=== PATIENT | female | born 1970 | race Caucasian/White ===

== ENCOUNTER 2017-06-14 13:54 | Emergency (ER) | payer BC, OTHER ==
[2017-06-14 14:15] VITALS: TEMP 97.9; BMI 29.9
[2017-06-14] MEDS ORDERED: MECLIZINE HCL 25 MG TABLET (FP) PO ONE (14:47)
[2017-06-14] MEDS ORDERED: ONDANSETRON 4 MG/2 ML VIAL IVPUSH ONE (14:47)
[2017-06-14] MEDS ORDERED: SODIUM CHLORIDE 1,000 ML IV STA (14:47)
--- NOTE | 2017-06-14 14:58 | PDOC ---
History of Present Illness <Inge Bradford - Last Filed: 06/14/17 17:23> - History of Present Illness Initial Comments: 06/14/17 14:58 The patient is a 47 year old female who denies PMH who presents for evaluation of lightheadedness, nausea, and vomiting. The patient reports acute onset of dizziness/lightheadedness that she describes as the room spinning around herself at around 11am this morning. She reports subsequent nausea and multiple episodes of non-bilious, non-bloody vomiting. She states her symptoms are worse with head movement and notes that she did have a recent viral illness. She denies fevers, chills, SOB, chest pain, abdominal pain, or changes with urination or bowel movements. <Tim Gallardo - Last Filed: 06/14/17 17:35> - General Chief Complaint: Nausea/Vomiting Stated Complaint: Nausea/Vomiting Time Seen by Provider: 06/14/17 14:37 Past History <Inge Bradford - Last Filed: 06/14/17 17:23> - Past Medical History COPD: No Diabetes: (PRE-DIABETIC) - Surgical History Abdominal Surgery: (TUMMY TUCK) - Suicide/Smoking/Psychosocial Hx Smoking History: Current some day smoker Number of Cigarettes Smoked Daily: 1 Information on smoking cessation initiated: No Hx Alcohol Use: No Drug/Substance Use Hx: No <Tim Gallardo - Last Filed: 06/14/17 17:35> - Past Medical History Allergies/Adverse Reactions: Allergies Allergy/AdvReac Type Severity Reaction Status Date / Time No Known Allergies Allergy Verified 06/14/17 14:15 Home Medications: Ambulatory Orders Meclizine HCl [Antivert -] 25 mg PO TID PRN #21 tablet 06/14/17 Review of Systems - Review of Systems Comments:: 06/14/17 15:02 Constitutional: No fevers, chills, fatigue, malaise HEENT: No Rhinorrhea, nasal congestion, visual changes Cardiovascular: No chest pain, syncope, palpitations, lightheadedness Respiratory: No Cough, SOB, Hemoptysis, Gastrointestinal: Nausea, vomiting. No Abdominal pain, Constipation, Diarrhea, Melena Genitourinary: No Dysuria, Frequency, Urgency, Hesitancy, Hematuria, Flank pain Musculoskeletal: No Myalgia, arthralgia Skin: No rashes, bruising, pallor Neurologic: Dizziness. No Headache, Numbness, Weakness, or Tingling Psychiatric: No Hallucinations. No SI or HI <PaulinaTim - Last Filed: 06/14/17 17:35> *Physical Exam - Vital Signs Last Vital Signs Temp Pulse Resp BP Pulse Ox 97.9 F 72 16 143/83 72 L 06/14/17 14:00 06/14/17 14:00 06/14/17 14:00 06/14/17 14:00 06/14/17 14:00 <Inge Bradford - Last Filed: 06/14/17 17:23> - Vital Signs Last Vital Signs Temp Pulse Resp BP Pulse Ox 97.9 F 72 16 143/83 72 L 06/14/17 14:00 06/14/17 14:00 06/14/17 14:00 06/14/17 14:00 06/14/17 14:00 - Physical Exam Comments: 06/14/17 15:03 General Appearance: Nourished. No Apparent Distress HEENT: EOMI, TANISHA. Horizontal nystagmus noted on exam. No Pharyngeal Erythema, Tonsillar Exudate, Tonsillar Erythema Neck: No Cervical Lymphadenopathy Respiratory/Chest: Lungs Clear, Normal Breath Sounds. No Crackles, Rales, Rhonchi, Wheezing Cardiovascular: Regular Rhythm, Regular Rate. No JVD, Murmur, Gallops, Rubs Gastrointestinal/Abdominal: Normal Bowel Sounds, Soft. No Guarding, Rebound, Tenderness Musculoskeletal: No CVA Tenderness Extremity: Normal Capillary Refill Integumentary: Normal Color, Dry, Warm Neurologic: automatic chief II-XII NML intact, Fully Oriented, Alert, Normal Mood/Affect, Normal Response, Motor Strength 5/5. Normal Finger to Nose and Heel to Raman. Normal fast alternating hands. Unable to assess gait due to severe symptoms. <PaulinaReeceTim - Last Filed: 06/14/17 17:35> ED Treatment Course - LABORATORY CBC & Chemistry Diagram: 06/14/17 15:30 06/14/17 15:30 - ADDITIONAL ORDERS Additional order review: Laboratory Results 06/14/17 06/14/17 15:30 15:30 Sodium 140 Potassium 4.8 Chloride 107 Carbon Dioxide 27 Anion Gap 6 L BUN 18 Creatinine 0.7 Creat Clearance w eGFR > 60 Random Glucose 104 Calcium 9.1 Total Bilirubin 0.3 AST 20 ALT 36 Alkaline Phosphatase 91 Creatine Kinase 88 Troponin I < 0.02 Total Protein 7.5 Albumin 3.8 06/14/17 15:30 RBC 5.46 H MCV 81.3 MCHC 32.4 RDW 14.3 MPV 9.1 Neutrophils % 87.7 H Lymphocytes % 6.6 L Monocytes % 4.5 Eosinophils % 0.3 Basophils % 0.9 - Medications Given in the ED: ED Medications Discontinued Medications Generic Name Dose Route Start Last Admin Trade Name Freq PRN Reason Stop Dose Admin Sodium Chloride 1,000 mls @ 1,000 mls/hr 06/14/17 14:47 06/14/17 15:33 Normal Saline - IV 06/14/17 15:46 1,000 mls/hr ASDIR STA Administration Meclizine HCl 25 mg 06/14/17 14:47 06/14/17 15:37 Antivert - PO 06/14/17 14:48 25 mg ONCE ONE Administration Ondansetron HCl 4 mg 06/14/17 14:47 06/14/17 15:33 Zofran Injection IVPUSH 06/14/17 14:48 4 mg ONCE ONE Administration <Inge Bradford - Last Filed: 06/14/17 17:23> - LABORATORY CBC & Chemistry Diagram: 06/14/17 15:30 06/14/17 15:30 - RADIOLOGY Radiology Studies Ordered: Category Date Time Status HEAD CT WITHOUT CONTRAST [CT] Stat CT Scan 06/14/17 14:55 Ordered <Tim Gallardo - Last Filed: 06/14/17 17:35> Medical Decision Making - Medical Decision Making 06/14/17 15:05 The patient is a 47 year old female who denies PMH who presents for evaluation of lightheadedness, nausea, and vomiting. Differential includes but is not limited to: Peripheral vertigo, central vertigo, infectious, metabolic derangement. Given the patient's severity of symptoms with a positive stephane diaz pike, it is likely the patient's symptoms are due to a peripheral vertigo. We will obtain a head ct to evaluate for any intracranial pathology as well. We will obtain a cbc, cmp, troponin, ekg to evaluate for other etiologies. We will treat the patient with zofran, iv fluids, and meclzine. We will continue to monitor and reassess. 06/14/17 17:32 cbc, cmp, troponin, ekg are unremarkable. Head CT is negative for acute processes as read by our radiologist. The patient reports significant improvement in her symptoms and is able to ambulate without any difficulty. We are comfortable discharging the patient home at this time with PCP follow up. We discussed the results with the patient as well as the plan and the patient voiced understanding and is agreeable. We will discharge with meclizine for home symptom management. <Tim Gallardo - Last Filed: 06/14/17 17:35> *DC/Admit/Observation/Transfer <SuzetteInge - Last Filed: 06/14/17 17:23> - Discharge Dispostion Admit: No <Tim Gallardo - Last Filed: 06/14/17 17:35> Diagnosis at time of Disposition: Positional vertigo Qualifiers: Laterality: unspecified laterality Qualified Code(s): H81.10 - Benign paroxysmal vertigo, unspecified ear - Discharge Dispostion Disposition: HOME Condition at time of disposition: Improved - Prescriptions Prescriptions: Meclizine HCl [Antivert -] 25 mg PO TID PRN #21 tablet PRN Reason: Dizziness - Referrals Referrals: Neal Miller RES [Primary Care Provider] - - Patient Instructions Printed Discharge Instructions: DI for Vertigo Additional Instructions: Please return to the ER if you experience concerning or worsening symptoms including worsening vomiting or fevers. Your lab results and imaging results were negative here in the ER. Your symptoms are likely due to vertigo. We have sent a prescription to your pharmacy to help manage your symptoms at home. Please call to schedule a follow up appointment with your primary care provider to discuss your ER visit and further management of your symptoms within 1 week. - Post Discharge Activity
--- NOTE | 2017-06-14 15:03 | PDOC ---
Attending Attestation - Resident Resident Name: Reece Gallardoel - ED Attending Attestation I have performed the following: I have examined & evaluated the patient, The case was reviewed & discussed with the resident, I agree w/resident's findings & plan, Exceptions are as noted - HPI HPI: 06/14/17 15:00 47-year-old female with no past medical history here today complaining of vertigo. Patient states symptoms started approximately 11 AM she had sudden onset severe spinning sensation with associated nausea and vomiting. Symptoms are worse with head turning and any movement states that she did feel falling sensation. No fever or chills no head trauma no focal weakness or speech changes. Did recently have a viral cold has never had vertigo before - Physicial Exam PE: 06/14/17 15:01 Awake alert no acute distress. Lung exam was clear lungs bilaterally. Heart is regular no murmurs rubs or gallops. Abdomen is soft and nontender. Extremities are warm and well-perfused. Neurological exam: Alert oriented 3. Patient has horizontal nystagmus. Nose is normal. Alternating hand movements are normal. Patient has a positive Favian-Hallpike with any head movement. Unable to test gait due to severer symptoms at this time. Speech is clear. Cranial nerves II through XII are intact. Strength is 5 out of 5 throughout - Medical Decision Making 06/14/17 15:02 47-year-old with severe vertigo likely peripheral. Plan IV fluids and Zofran and meclizine. We'll obtain CT scan to rule out any other pathology. Relatively normal neuro exam including a normal cerebellar exam this point. Making stroke Unlikely 06/14/17 17:[address] negative. labs unremarkable. feeling much improved after meclizine. gait normal. will dc with meclizine. and nuerology followup
[2017-06-14] MEDS ORDERED: ONDANSETRON 4 MG/2 ML VIAL ONE (15:06)
[2017-06-14] MEDS ORDERED: MECLIZINE HCL 25 MG TABLET (FP) ONE (15:34)
[2017-06-14 15:55] LABS: ALBUMIN 3.8 g/dl (3.4-5.0); ANION GAP 6 (8-16); BILIRUBIN,TOTAL 0.3 mg/dL (0.2-1.0); CALCIUM 9.1 mg/dL (8.5-10.1); CO2 27 mmol/L (21-32); CREATININE 0.7 mg/dL (0.55-1.02); GLUCOSE,RANDOM 104 mg/dL (74-106); SGOT/AST 20 U/L (15-37); SGPT/ALT 36 U/L (12-78); TOT PROT 7.5 g/dl (6.4-8.2)
[2017-06-14 15:56] LABS: ALK PHOS 91 U/L (45-117); CPK 88 IU/L (26-192); TROPONIN I < 0.02 ng/ml (0.00-0.05)
[2017-06-14 15:57] LABS: BASOPHIL 0.9 % (0-2.0); EOSINOPHIL 0.3 % (0-4.5); MCH 26.4 pg (25.7-33.7); MCHC 32.4 g/dl (32.0-36.0); MEAN CELL VOLUME 81.3 fl (80-96); MEAN PLT VOLUME 9.1 fl (7.5-11.1); NEUTROPHILS 87.7 % (42.8-82.8); PLATELET COUNT 271 K/MM3 (134-434); RDW 14.3 % (11.6-15.6); WHITE BLOOD COUNT 12.6 K/mm3 (4.0-10.0)
[2017-06-14 17:45] VITALS: BP 137/72; PULSE 77
--- NOTE | 2017-06-17 11:42 | EKG ---
Test Reason : Blood Pressure : / mmHG Vent. Rate : 065 BPM Atrial Rate : 065 BPM P-R Int : 170 ms QRS Dur : 080 ms QT Int : 414 ms P-R-T Axes : 056 031 032 degrees QTc Int : 430 ms NORMAL SINUS RHYTHM NORMAL ECG NO PREVIOUS ECGS AVAILABLE Confirmed by BERTIN JOHNSON, BLANCO ([id number]) on 06/17/2017 11:41:37 AM Referred By: Confirmed By:BLANCO DENTON MD
== END 2017-06-14 17:44 | disposition home or self-care (01) ==
LOC: JER 13:54
PROC: 3E033GC Introduction of Other Therapeutic Substance into Peripheral Vein, Percutaneous Approach (ICD-10-PCS; principal; 2017-06-14)
PROC: 3E0337Z Introduction of Electrolytic and Water Balance Substance into Peripheral Vein, Percutaneous Approach (ICD-10-PCS; 2017-06-14)
DX: H81.10 Benign paroxysmal vertigo, unspecified ear (principal); F17.210 Nicotine dependence, cigarettes, uncomplicated; R73.03 Prediabetes
CPT/HCPCS: 36415; 70450-TC; 80053; 82550; 84484; 85025; 93005; 93010; 99284-25

== ENCOUNTER 2019-05-27 17:40 | Emergency (ER) | payer BC, OTHER ==
[2019-05-27] MEDS ORDERED: ONDANSETRON 4 MG/2 ML VIAL IVPUSH ONE (17:52)
[2019-05-27] MEDS ORDERED: SODIUM CHLORIDE 1,000 ML IV STA ×2 (17:52→19:33)
[2019-05-27] MEDS ORDERED: KETOROLAC TROMETHAMINE 30 MG/1 ML VIAL IVPUSH ONE (17:52)
--- NOTE | 2019-05-27 17:52 | PDOC ---
Rapid Medical Evaluation Time Seen by Provider: 05/27/19 17:50 Medical Evaluation: Allergies Allergy/AdvReac Type Severity Reaction Status Date / Time No Known Allergies Allergy Verified 06/14/17 14:15 05/27/19 17:50 Pt c/o: abd pain after eating at [employer] this afternoon, + vomiting, abd cramping Pt on brief exam: vss, gen abd tenderness Pt ordered for: lab, meds, urine,ivf Pt to proceed to the ED Discharge Disposition - Diagnosis Abdominal pain, Nausea & vomiting, Leukocytosis - Discharge Dispostion Disposition: HOME - Prescriptions Prescriptions: Ondansetron [Zofran Odt -] 4 mg SL TID #9 od.tablet - Referrals - Patient Instructions Printed Discharge Instructions: Combination of Diet and Exercise May be Most Effective Weight Loss Tool for, DI for Nonalcoholic Fatty Liver Disease Additional Instructions: Your symptoms may be due to food poisoning, but they also could be due to the diet medication you are on. Follow up with your primary care doctor within 3 days. Your care is not complete until you follow up. STOP taking the diet pills until you see your primary care doctor. You had a high white blood cell count - 18 --> 13. Follow up on this finding with your primary care doctor, have this lab value tested again within 7 days. Your Ultrasound showed fatty liver. Return to the Emergency Department for increasing pain, shortness of breath, vomiting, fever, vomiting blood, blood in stool or any other new, worsening or concerning symptoms. - Post Discharge Activity Work/School Note: Back to Work
[2019-05-27 17:54] VITALS: BMI 32.1
[2019-05-27] MEDS ORDERED: ONDANSETRON 4 MG/2 ML VIAL ONE (18:19)
[2019-05-27] MEDS ORDERED: KETOROLAC TROMETHAMINE 30 MG/1 ML VIAL ONE (18:19)
[2019-05-27 18:52] LABS: BASO % 0.6 % (0-2.0); EOS % 0.4 % (0-4.5); HEMATOCRIT 46.9 % (32.4-45.2); HEMOGLOBIN 14.9 GM/dL (10.7-15.3); LYMPH % 6.8 % (8-40); MCHC 31.8 g/dl (32.0-36.0); MEAN CELL VOLUME 81.6 fl (80-96); MEAN PLT VOLUME 9.1 fl (7.5-11.1); NEUT % 89.2 % (42.8-82.8); PLATELET COUNT 305 K/MM3 (134-434); RBC 5.75 M/mm3 (3.60-5.2); RDW 14.5 % (11.6-15.6); WHITE BLOOD COUNT 18.3 K/mm3 (4.0-10.0)
[2019-05-27 19:28] LABS: BILIRUBIN,TOTAL 0.5 mg/dL (0.2-1); BLOOD UREA NITROGEN 16.1 mg/dL (7-18); CALCIUM 9.4 mg/dL (8.5-10.1); CREATININE 0.8 mg/dL (0.55-1.3); MAGNESIUM 2.3 mg/dL (1.8-2.4); POTASSIUM 3.9 mmol/L (3.5-5.1); TOT PROT 7.9 g/dl (6.4-8.2)
--- NOTE | 2019-05-27 19:33 | PDOC ---
History of Present Illness - General Chief Complaint: Pain Stated Complaint: ABD PAIN Time Seen by Provider: 05/27/19 17:50 History Source: Patient Exam Limitations: No Limitations - History of Present Illness Initial Comments: 48 year old female with PMH fatty liver, gastritis presented to ED for nausea/ vomiting/epigastric pain 1 hour after ingesting a chicken meal at a restaurant. She reported that her mother thought the chicken was undercooked. She denied fever, diarrhea, lightheadedness, chest pain, shortness of breath, dysuria, cough. She reported that she started taking Contrave (naltrexone/buproprion) x1 week ago one pill a day, and today was the first day she was supposed to take two pills. Past History - Past Medical History Allergies/Adverse Reactions: Allergies Allergy/AdvReac Type Severity Reaction Status Date / Time No Known Allergies Allergy Verified 05/27/19 17:53 Home Medications: Ambulatory Orders Naltrexone HCl/Bupropion HCl [Contrave ER 8-90 mg Tablet] 1 each PO BID COPD: No Diabetes: (PRE-DIABETIC) Liver Disease: Yes (fatty liver) - Surgical History Abdominal Surgery: ([facility]) - Psycho Social/Smoking Cessation Hx Smoking History: Never smoked Number of Cigarettes Smoked Daily: 1 Information on smoking cessation initiated: No Hx Alcohol Use: No Drug/Substance Use Hx: No Review of Systems - Review of Systems Able to Perform ROS?: Yes Comments:: ROS General: admitted to generalized weakness. denied fever, chills. HEENT: denied sore throat, rhinorrhea, ear pain. Cardiovascular: denied chest pain, palpitations, syncope, diaphoresis. Respiratory: denied shortness of breath, cough, sputum production, hemoptysis. Gastrointestinal: admitted to abdominal pain, nausea, vomiting. denied diarrhea , constipation, blood in stool. Genitourinary: denied dysuria, increased urinary frequency, hematuria, urinary incontinence, flank pain. Back: denied back pain. Musculoskeletal: denied joint pain, muscle pain, joint swelling. Neurological: denied headache, dizziness, numbness, tingling, weakness. Integumentary: denied rash, laceration, abrasion. Hematologic/Lymphatic: denied bruising or bleeding. PE Constitutional: Well-nourished, Well-developed, appearing stated age. HEENT: head is normocephalic, atraumatic. EOMI. PERRLA. Neck: supple. Full ROM. Cardiovascular: regular heart rhythm. no murmurs. no pericardial friction rub. Respiratory: clear to auscultation bilaterally. no crackles, rhonchi or wheezing. no stridor. Gastrointestinal: soft, flat. tenderness to palpation of epigastrium. negative murphys. negative mcburneys. increased bowel sounds. no rebound, guarding, masses. Extremities: peripheral pulses intact. no lower extremity edema. Neurological: CN 2-12 grossly intact. moves all four extremities. Psych: awake, alert, oriented x3. follows commands. answers questions appropriately. *Physical Exam - Vital Signs Last Vital Signs Temp Pulse Resp BP Pulse Ox 97.9 F 110 H 19 90/64 99 05/27/19 17:51 05/27/19 17:51 05/27/19 17:51 05/27/19 17:51 05/27/19 17:51 ED Treatment Course - LABORATORY CBC & Chemistry Diagram: 05/27/19 23:05 05/27/19 18:30 - ADDITIONAL ORDERS Additional order review: Laboratory Results 05/27/19 18:30 Sodium 139 Potassium 3.9 Chloride 103 Carbon Dioxide 27 Anion Gap 9 BUN 16.1 Creatinine 0.8 Est GFR (CKD-EPI)AfAm 99.63 Est GFR (CKD-EPI)NonAf 85.96 Random Glucose 92 Calcium 9.4 Magnesium 2.3 Total Bilirubin 0.5 AST 19 ALT 27 Alkaline Phosphatase 114 Total Protein 7.9 Albumin 4.0 Lipase 53 L 05/27/19 18:30 RBC 5.75 H MCV 81.6 MCHC 31.8 L RDW 14.5 MPV 9.1 Neutrophils % 89.2 H Lymphocytes % 6.8 L Monocytes % 3.0 L Eosinophils % 0.4 Basophils % 0.6 - Medications Given in the ED: ED Medications Discontinued Medications Generic Name Dose Route Start Last Admin Trade Name Freq PRN Reason Stop Dose Admin Sodium Chloride 1,000 mls @ 1,000 mls/hr 05/27/19 17:52 05/27/19 18:29 Normal Saline - IV 05/27/19 18:51 1,000 mls/hr ASDIR STA Administration Ketorolac Tromethamine 30 mg 05/27/19 17:52 05/27/19 18:29 Toradol Injection - IVPUSH 05/27/19 17:53 30 mg ONCE ONE Administration Ondansetron HCl 4 mg 05/27/19 17:52 05/27/19 18:30 Zofran Injection IVPUSH 05/27/19 17:53 4 mg ONCE ONE Administration Medical Decision Making - Medical Decision Making 48 year old female with above PMH presented to ED for N/V epigastric pain acutely 1 hour after ingesting suspected undercooked chicken at a restaurant. Initial Vital Signs Temp Pulse Resp BP Pulse Ox 97.9 F 110 H 19 90/64 99 05/27/19 17:51 05/27/19 17:51 05/27/19 17:51 05/27/19 17:51 05/27/19 17:51 Afebrile. Tachycardic. Tachypneic. Hypotensive. No hypoxia on room air. Uptodate >10% Adverse Reactions of Contrave: -Central nervous system: Headache (18%), sleep disorder (14%) -Gastrointestinal: Nausea (33%), constipation (19%), vomiting (11%) -Cholecystitis (<2%) ED Medications Discontinued Medications Generic Name Dose Route Start Last Admin Trade Name Freq PRN Reason Stop Dose Admin Sodium Chloride 1,000 mls @ 1,000 mls/hr 05/27/19 17:52 05/27/19 18:29 Normal Saline - IV 05/27/19 18:51 1,000 mls/hr ASDIR STA Administration Ketorolac Tromethamine 30 mg 05/27/19 17:52 05/27/19 18:29 Toradol Injection - IVPUSH 05/27/19 17:53 30 mg ONCE ONE Administration Ondansetron HCl 4 mg 05/27/19 17:52 05/27/19 18:30 Zofran Injection IVPUSH 05/27/19 17:53 4 mg ONCE ONE Administration CBC WBC 18.3 K/mm3 (4.0-10.0) H 05/27/19 18:30 RBC 5.75 M/mm3 (3.60-5.2) H 05/27/19 18:30 Hgb 14.9 GM/dL (10.7-15.3) 05/27/19 18:30 Hct 46.9 % (32.4-45.2) H 05/27/19 18:30 MCV 81.6 fl (80-96) 05/27/19 18:30 MCH 26.0 pg (25.7-33.7) 05/27/19 18:30 MCHC 31.8 g/dl (32.0-36.0) L 05/27/19 18:30 RDW 14.5 % (11.6-15.6) 05/27/19 18:30 Plt Count 305 K/MM3 (134-434) 05/27/19 18: MPV 9.1 fl (7.5-11.1) 05/27/19 18:30 Absolute Neuts (auto) 16.4 K/mm3 (1.5-8.0) H 05/27/19 18:30 Neutrophils % 89.2 % (42.8-82.8) H 05/27/19 18:30 Lymphocytes % 6.8 % (8-40) L 05/27/19 18:30 Monocytes % 3.0 % (3.8-10.2) L 05/27/19 18: Eosinophils % 0.4 % (0-4.5) 05/27/19 18:30 Basophils % 0.6 % (0-2.0) 05/27/19 18:30 Nucleated RBC % 0 % (0-0) 05/27/19 18:30 Leukocytosis with left shift. No anemia. CMP Sodium 139 mmol/L (136-145) 05/27/19 18:30 Potassium 3.9 mmol/L (3.5-5.1) 05/27/19 18:30 Chloride 103 mmol/L (98-107) 05/27/19 18:30 Carbon Dioxide 27 mmol/L (21-32) 05/27/19 18:30 Anion Gap 9 MMOL/L (8-16) 05/27/19 18:30 BUN 16.1 mg/dL (7-18) 05/27/19 18:30 Creatinine 0.8 mg/dL (0.55-1.3) 05/27/19 18:30 Est GFR (CKD-EPI)AfAm 99.63 05/27/19 18:30 Est GFR (CKD-EPI)NonAf 85.96 05/27/19 18:30 Random Glucose 92 mg/dL (74-106) 05/27/19 18:30 Calcium 9.4 mg/dL (8.5-10.1) 05/27/19 18:30 Magnesium 2.3 mg/dL (1.8-2.4) 05/27/19 18:30 Total Bilirubin 0.5 mg/dL (0.2-1) 05/27/19 18:30 AST 19 U/L (15-37) 05/27/19 18:30 ALT 27 U/L (13-61) 05/27/19 18:30 Alkaline Phosphatase 114 U/L (45-117) 05/27/19 18:30 Total Protein 7.9 g/dl (6.4-8.2) 05/27/19 18:30 Albumin 4.0 g/dl (3.4-5.0) 05/27/19 18:30 Lipase 53 U/L (73-393) L 05/27/19 18:30 No electrolyte abnormalities. No RENETTA. No transaminitis. Lipase wnl. 05/27/19 21:50 RUQ US report: Name: [facility] DEPARTMENT OF RADIOLOGY Phys: Ami Lua RESIDENT : 1970 Age: 48 Sex: F [facility] Acct: [id number] Loc: [address] Exam Date: 05/27/19 Status: [facility] [place] [address] Unit Number: [id number] EXAM#: TYPE/EXAM: RESULT: [id number] US/ABDOMEN US -LIMITED HISTORY PROVIDED: Epigastric pain. Real time examination of the abdomen demonstrates the following : The gallbladder is normal in size and free of calculi with no evidence of intra or extrahepatic biliary duct dilatation. The liver is enlarged measuring 18 cm in craniocaudad dimension. It is hyperechoic in texture consistent with diffuse fatty infiltration. No discrete intrahepatic masses are identified. Hepatopedal flow is documented within the main portal vein. The pancreas is normal in size and texture with no pancreatic masses identified. There is no evidence of hydronephrosis or acute abnormalities of the right kidney. There is no evidence of AAA. The IVC is patent. IMPRESSION: Diffuse fatty infiltration of the liver. Reported By: Luc Brown MD 05/27/192118 CT report: Name: [facility] DEPARTMENT OF RADIOLOGY Phys: Pepe Knapp RESIDENT : 1970 Age: 48 Sex: F [facility] Acct: [id number] Loc: [facility] Exam Date: 05/27/19 Status: [facility] [place] [id number] Unit Number: [id number] EXAM#: TYPE/EXAM: RESULT: [id number] CT/ABDOMEN PELVIS CT WITH CONTR HISTORY PROVIDED: Diffuse abdominal pain. Sequential axial images were obtained from the domes of the diaphragms through the symphysis pubis following the administration of both oral and intravenous contrast material. The the liver is enlarged measuring 21.5 cm in craniocaudad dimension. It is hypodense in texture consistent with diffuse fatty infiltration. No mass lesions are identified within the liver. The spleen, pancreas, adrenal glands and kidneys demonstrate no significant abnormalities. The gallbladder is clear. There is no evidence of intra-abdominal or retroperitoneal lymphadenopathy or fluid collections. There is no evidence of pneumoperitoneum, bowel obstruction or intra-abdominal abscess. There is no CT evidence of acute appendicitis. There is extensive sigmoid diverticulosis with no evidence of acute diverticulitis. Examination of the pelvis demonstrates no evidence of pelvic masses, fluid collections or lymphadenopathy. The uterus is enlarged consistent with leiomyomata. There is a trace amount of free fluid within the cul-de-sac. There is no evidence of acute bony pathology. IMPRESSION: No evidence of acute pathology within the abdomen or pelvis. Please see above discussion. Reported By : Luc Brown MD 05/27/19222305/27/19 23:20 CBC WBC 13.8 K/mm3 (4.0-10.0) H 05/27/19 23:05 RBC 5.24 M/mm3 (3.60-5.2) H 05/27/19 23:05 Hgb 13.4 GM/dL (10.7-15.3) 05/27/19 23:05 Hct 43.1 % (32.4-45.2) 05/27/19 23:05 MCV 82.2 fl (80-96) 05/27/19 23:05 MCH 25.6 pg (25.7-33.7) L 05/27/19 23:05 MCHC 31.2 g/dl (32.0-36.0) L 05/27/19 23:05 RDW 14.4 % (11.6-15.6) 05/27/19 23:05 Plt Count 273 K/MM3 (134-434) 05/27/19 23:05 MPV 8.5 fl (7.5-11.1) 05/27/19 23:05 Absolute Neuts (auto) 16.4 K/mm3 (1.5-8.0) H 05/27/19 18:30 Neutrophils % 89.2 % (42.8-82.8) H 05/27/19 18:30 Lymphocytes % 6.8 % (8-40) L 05/27/19 18:30 Monocytes % 3.0 % (3.8-10.2) L 05/27/19 18:30 Eosinophils % 0.4 % (0-4.5) 05/27/19 18:30 Basophils % 0.6 % (0-2.0) 05/27/19 18:30 Nucleated RBC % 0 % (0-0) 05/27/19 18:30 Repeat WBC improving. 05/28/19 00:02 CMP Sodium 139 mmol/L (136-145) 05/27/19 18:30 Potassium 3.9 mmol/L (3.5-5.1) 05/27/19 18:30 Chloride 103 mmol/L (98-107) 05/27/19 18:30 Carbon Dioxide 27 mmol/L (21-32) 05/27/19 18:30 Anion Gap 9 MMOL/L (8-16) 05/27/19 18:30 BUN 16.1 mg/dL (7-18) 05/27/19 18:30 Creatinine 0.8 mg/dL (0.55-1.3) 05/27/19 18:30 Est GFR (CKD-EPI)AfAm 99.63 05/27/19 18:30 Est GFR (CKD-EPI)NonAf 85.96 05/27/19 18:30 Random Glucose 92 mg/dL (74-106) 05/27/19 18:30 Calcium 9.4 mg/dL (8.5-10.1) 05/27/19 18:30 Magnesium 2.3 mg/dL (1.8-2.4) 05/27/19 18:30 Total Bilirubin 0.5 mg/dL (0.2-1) 05/27/19 18:30 AST 19 U/L (15-37) 05/27/19 18:30 ALT 27 U/L (13-61) 05/27/19 18:30 Alkaline Phosphatase 114 U/L (45-117) 05/27/19 18:30 Total Protein 7.9 g/dl (6.4-8.2) 05/27/19 18:30 Albumin 4.0 g/dl (3.4-5.0) 05/27/19 18:30 Lipase 53 U/L (73-393) L 05/27/19 18:30 Beta HCG, Quant 2.8 mIU/ml 05/27/19 18:30 No electrolyte abnormalities. No RENETTA. No transmianitis. Lipase wnl. Urine Test Results Urine Color Yellow 05/27/19 23:00 Urine Appearance Cloudy 05/27/19 23:00 Urine pH 8.5 (5.0-8.0) H 05/27/19 23:00 Ur Specific [place] 1.062 (1.010-1.035) H 05/27/19 23:00 Urine Protein Negative (NEGATIVE) 05/27/19 23:00 Urine Glucose (UA) Negative (NEGATIVE) 05/27/19 23:00 Urine Ketones Trace (NEGATIVE) H 05/27/19 23:00 Urine Blood Negative (NEGATIVE) 05/27/19 23:00 Urine Nitrite Negative (NEGATIVE) 05/27/19 23:00 Urine Bilirubin Negative (NEGATIVE) 05/27/19 23:00 Ur Leukocyte Esterase Negative (NEGATIVE) 05/27/19 23:00 Negative for UTI. Trace ketones. Pt reported improvement of symptoms. Pt informed to stop diet pills. Pt informed to F/U with PCP. Pt expressed improvement of symptoms and agreement with plan for care. Pt discharged. Discharge - Discharge Information Problems reviewed: Yes Clinical Impression/Diagnosis: Abdominal pain, Nausea & vomiting, Leukocytosis - Admission No - Follow up/Referral - Patient Discharge Instructions Patient Printed Discharge Instructions: Combination of Diet and Exercise May be Most Effective Weight Loss Tool for, DI for Nonalcoholic Fatty Liver Disease Additional Instructions: Your symptoms may be due to food poisoning, but they also could be due to the diet medication you are on. Follow up with your primary care doctor within 3 days. Your care is not complete until you follow up. STOP taking the diet pills until you see your primary care doctor. You had a high white blood cell count - 18 --> 13. Follow up on this finding with your primary care doctor, have this lab value tested again within 7 days. Your Ultrasound showed fatty liver. Return to the Emergency Department for increasing pain, shortness of breath, vomiting, fever, vomiting blood, blood in stool or any other new, worsening or concerning symptoms. - Post Discharge Activity Work/Back to School Note: Back to Work
--- NOTE | 2019-05-27 19:54 | PDOC ---
Attending Attestation - Resident Resident Name: Ami Lua - ED Attending Attestation I have performed the following: I have examined & evaluated the patient, The case was reviewed & discussed with the resident, I agree w/resident's findings & plan - HPI HPI: 05/28/19 00:58 see resident hpi - Physicial Exam PE: 05/28/19 00:58 agree with resident exam - Medical Decision Making 05/28/19 00:59 48-year-old female with vomiting and abdominal pain after eating questionable food CT abdomen and pelvis as well as right upper quadrant ultrasound were within normal limits Patient's white blood cell count decreased significantly after IV fluids Chest x-ray shows no acute infiltrate Patient improved on reevaluation prior to discharge, she will be discharged home with outpatient primary care follow-up
[2019-05-27 23:19] LABS: HEMATOCRIT 43.1 % (32.4-45.2); HEMOGLOBIN 13.4 GM/dL (10.7-15.3); MCH 25.6 pg (25.7-33.7); MCHC 31.2 g/dl (32.0-36.0); MEAN CELL VOLUME 82.2 fl (80-96); MEAN PLT VOLUME 8.5 fl (7.5-11.1); PLATELET COUNT 273 K/MM3 (134-434); RBC 5.24 M/mm3 (3.60-5.2); RDW 14.4 % (11.6-15.6); WHITE BLOOD COUNT 13.8 K/mm3 (4.0-10.0)
[2019-05-27 23:46] LABS: URINE APPEARANCE CLOUDY; URINE COLOR YELLOW
[2019-05-27 23:47] LABS: PH,URINE 8.5 (5.0-8.0); URINE BILIRUBIN NEGATIVE (NEGATIVE); URINE GLUCOSE (UA) NEGATIVE (NEGATIVE); URINE KETONE TRACE (NEGATIVE); URINE LEUK ESTERASE NEGATIVE (NEGATIVE); URINE NITRITE NEGATIVE (NEGATIVE); URINE PROTEIN NEGATIVE (NEGATIVE); URINE UROBILINOGEN 0.2 mg/dL (0.2-1.0)
[2019-05-28 01:29] VITALS: BP 92/51; PULSE 67; TEMP 98
--- NOTE | 2019-05-28 12:06 | EKG ---
Test Reason : Blood Pressure : / mmHG Vent. Rate : 070 BPM Atrial Rate : 070 BPM P-R Int : 160 ms QRS Dur : 080 ms QT Int : 408 ms P-R-T Axes : 053 016 026 degrees QTc Int : 440 ms NORMAL SINUS RHYTHM NORMAL ECG WHEN COMPARED WITH ECG OF 14-JUN-2017 15:04, NO SIGNIFICANT CHANGE WAS FOUND Confirmed by GREG FORDE MD ([id number]) on 05/28/2019 12:06:02 PM Referred By: Confirmed By:GREG FORDE MD
== END 2019-05-28 01:27 | disposition home or self-care (01) ==
LOC: JER 17:40
PROC: 3E0333Z Introduction of Anti-inflammatory into Peripheral Vein, Percutaneous Approach (ICD-10-PCS; principal; 2019-05-27)
PROC: 3E033GC Introduction of Other Therapeutic Substance into Peripheral Vein, Percutaneous Approach (ICD-10-PCS; 2019-05-27)
PROC: 3E0337Z Introduction of Electrolytic and Water Balance Substance into Peripheral Vein, Percutaneous Approach (ICD-10-PCS; 2019-05-27)
DX: D72.829 Elevated white blood cell count, unspecified (principal); R10.9 Unspecified abdominal pain; R11.2 Nausea with vomiting, unspecified; K76.0 Fatty (change of) liver, not elsewhere classified; K52.9 Noninfective gastroenteritis and colitis, unspecified; R73.03 Prediabetes
CPT/HCPCS: 36415; 71046-TC-FY; 74177-TC; 76705-TC; 80053; 81003; 83690; 83735; 84702; 85025; 85027; 93005; 93010; 99284-25; J7030

== ENCOUNTER 2022-04-19 03:45 | Inpatient (IN) | payer BC, OTHER ==
[2022-04-19] MEDS ORDERED: morphine CARPU-JECT 2 MG/1 ML DISP.SYRIN IVPUSH ONE ×3 (06:00→08:57)
[2022-04-19 06:23] LABS: HEMOGLOBIN 14.7 GM/dL (10.7-15.3); MCH 26.6 pg (25.7-33.7); MCHC 32.8 g/dl (32.0-36.0); MEAN CELL VOLUME 81.1 fl (80-96); MEAN PLT VOLUME 8.2 fl (7.5-11.1); PLATELET COUNT 353 10^3/uL (134-434); RBC 5.54 M/mm3 (3.60-5.2); RDW 14.2 % (11.6-15.6); WHITE BLOOD COUNT 12.3 K/mm3 (4.0-10.0)
[2022-04-19 06:25] LABS: ACTIVATED PTT 37.3 SECONDS (25.2-36.5); INR 1.03 (0.83-1.09); PROTHROMBIN TIME (PATIENT) 11.9 SEC (9.7-13.0)
[2022-04-19 06:34] LABS: LACTIC ACID 3.8 mmol/L (0.4-2.0)
[2022-04-19] MEDS ORDERED: METOCLOPRAMIDE HCL INJECTION 10 MG/2 ML VIAL IVPUSH ONE (06:39)
[2022-04-19] MEDS ORDERED: METOCLOPRAMIDE HCL INJECTION 10 MG/2 ML VIAL ONE (06:52)
[2022-04-19 07:13] LABS: CHLORIDE 106 mmol/L (98-107); SODIUM 141 mmol/L (136-145)
[2022-04-19] MEDS ORDERED: LACTATED RINGERS SOLUTION 1000 ML INFUS.BAG IV ONE (07:13)
[2022-04-19 07:15] LABS: CALCIUM 10.3 mg/dL (8.5-10.1); LIPASE 61 U/L (73-393); MAGNESIUM 2.4 mg/dL (1.8-2.4)
[2022-04-19 07:16] LABS: ALBUMIN 4.3 g/dl (3.4-5.0); ANION GAP 15 MMOL/L (8-16); CO2 21 mmol/L (21-32); GLUCOSE,RANDOM 108 mg/dL (74-106)
[2022-04-19 07:18] LABS: SGOT/AST 20 U/L (15-37); SGPT/ALT 21 U/L (13-61)
[2022-04-19 07:19] LABS: TRIGLYCERIDES 111 mg/dL (0-150)
[2022-04-19 07:20] LABS: TOT PROT 8.1 g/dl (6.4-8.2)
[2022-04-19 07:21] LABS: BILIRUBIN,TOTAL 0.8 mg/dL (0.2-1)
[2022-04-19 07:22] LABS: ALK PHOS 95 U/L (45-117)
[2022-04-19] MEDS ORDERED: morphine CARPU-JECT 4 MG/1 ML DISP.SYRIN IVPUSH ONE (07:25)
[2022-04-19] MEDS ORDERED: SUCRALFATE 1 GM TABLET (FP) PO ONE (07:39)
[2022-04-19] MEDS ORDERED: FAMOTIDINE 20 MG/50 ML IVPB 20 MG/50 ML MG IVPB ONE ×2 (07:40→07:48)
[2022-04-19] MEDS ORDERED: TRIMETHOBENZAMIDE HCL 200MG/2ML INJ IM ONE ×2 (08:15→08:16)
[2022-04-19 08:49] LABS: PH,URINE 8.5 (5.0-8.0); URINE APPEARANCE CLEAR; URINE BILIRUBIN NEGATIVE (NEGATIVE); URINE COLOR YELLOW; URINE GLUCOSE (UA) NEGATIVE (NEGATIVE); URINE KETONE 2+ (NEGATIVE); URINE LEUK ESTERASE NEGATIVE (NEGATIVE); URINE NITRITE NEGATIVE (NEGATIVE); URINE PROTEIN NEGATIVE (NEGATIVE); URINE UROBILINOGEN 0.2 mg/dL (0.2-1.0)
[2022-04-19] MEDS ORDERED: SUCRALFATE 1 GM TABLET (FP) ONE (10:47)
[2022-04-19] MEDS ORDERED: LORazepam 2 MG/ML SDV VIAL IVPUSH ONE (12:19)
[2022-04-19] MEDS: LACTATED RINGERS SOLUTION 1,000 ML IV SCH (13:37)
[2022-04-19] MEDS: KETOROLAC TROMETHAMINE 15 MG/ML VIAL IVPUSH PRN (13:38)
[2022-04-19] MEDS ORDERED: ACETAMINOPHEN 1000 MG/100 ML BAG IVPB PRN (13:56)
[2022-04-19] MEDS ORDERED: PANTOPRAZOLE SODIUM 40 MG VIAL ONE (19:35)
[2022-04-19] MEDS: PANTOPRAZOLE SODIUM 40 MG VIAL IVPUSH SCH (20:00)
[2022-04-20] MEDS: TRIMETHOBENZAMIDE HCL 200MG/2ML INJ IM PRN ×2 (08:03→17:31)
[2022-04-20] MEDS: KETOROLAC TROMETHAMINE 15 MG/ML VIAL IVPUSH PRN ×2 (10:10→17:59)
[2022-04-20 10:12] LABS: BASO % 0.6 % (0-2.0); EOS % 0.1 % (0-4.5); HEMATOCRIT 39.6 % (32.4-45.2); HEMOGLOBIN 13.8 GM/dL (10.7-15.3); LYMPH % 12.7 % (8-40); MCH 28.2 pg (25.7-33.7); MCHC 34.8 g/dl (32.0-36.0); MEAN CELL VOLUME 81.1 fl (80-96); MEAN PLT VOLUME 7.8 fl (7.5-11.1); MONO % 6.5 % (3.8-10.2); NEUT % 80.1 % (42.8-82.8); PLATELET COUNT 268 10^3/uL (134-434); RBC 4.89 M/mm3 (3.60-5.2); RDW 14.5 % (11.6-15.6); WHITE BLOOD COUNT 9.6 K/mm3 (4.0-10.0)
[2022-04-20] MEDS: LACTATED RINGERS SOLUTION 1,000 ML IV SCH ×3 (10:25→17:58)
[2022-04-20] MEDS: PANTOPRAZOLE SODIUM 40 MG VIAL IVPUSH SCH (10:27)
[2022-04-20] MEDS: ENOXAPARIN NA (PORCINE) 40 MG/0.4 ML DISP.SYRIN SQ SCH (10:31)
[2022-04-20 10:33] LABS: BLOOD UREA NITROGEN 17.7 mg/dL (7-18)
[2022-04-20 10:36] LABS: CREATININE 0.7 mg/dL (0.55-1.3); PHOSPHOROUS 2.7 mg/dL (2.5-4.9)
[2022-04-20] MEDS ORDERED: MELATONIN 5 MG TABLETS PO ONE (20:34)
[2022-04-20] MEDS ORDERED: PROCHLORPERAZINE INJECTION 10 MG/2 ML VIAL IVPB ONE (20:34)
[2022-04-20] MEDS: SUCRALFATE 1 GM TABLET (FP) PO SCH (21:23)
[2022-04-21] MEDS: ENOXAPARIN NA (PORCINE) 40 MG/0.4 ML DISP.SYRIN SQ SCH (09:23)
[2022-04-21] MEDS: SUCRALFATE 1 GM TABLET (FP) PO SCH ×2 (09:24→21:29)
[2022-04-21] MEDS: LACTATED RINGERS SOLUTION 1,000 ML IV SCH ×2 (09:24→15:19)
[2022-04-21] MEDS: PANTOPRAZOLE SODIUM 40 MG VIAL IVPUSH SCH (09:24)
[2022-04-21 09:49] LABS: BASO % 0.8 % (0-2.0); EOS % 0.4 % (0-4.5); HEMATOCRIT 41.8 % (32.4-45.2); HEMOGLOBIN 13.5 GM/dL (10.7-15.3); LYMPH % 14.7 % (8-40); MCH 26.4 pg (25.7-33.7); MCHC 32.3 g/dl (32.0-36.0); MEAN CELL VOLUME 81.8 fl (80-96); MEAN PLT VOLUME 8.8 fl (7.5-11.1); MONO % 6.4 % (3.8-10.2); NEUT % 77.7 % (42.8-82.8); PLATELET COUNT 266 10^3/uL (134-434); RBC 5.11 M/mm3 (3.60-5.2); WHITE BLOOD COUNT 8.5 K/mm3 (4.0-10.0)
[2022-04-21 10:12] LABS: BLOOD UREA NITROGEN 13.1 mg/dL (7-18); CALCIUM 8.3 mg/dL (8.5-10.1)
[2022-04-21 10:15] LABS: CREATININE 0.5 mg/dL (0.55-1.3); PHOSPHOROUS 2.5 mg/dL (2.5-4.9)
[2022-04-21 10:16] LABS: TOT PROT 6.7 g/dl (6.4-8.2)
[2022-04-21 10:17] LABS: BILIRUBIN,TOTAL 0.7 mg/dL (0.2-1)
[2022-04-21 10:22] LABS: ALBUMIN 3.3 g/dl (3.4-5.0)
[2022-04-21] MEDS: KETOROLAC TROMETHAMINE 15 MG/ML VIAL IVPUSH PRN ×2 (15:18→22:12)
[2022-04-21] MEDS: TRIMETHOBENZAMIDE HCL 200MG/2ML INJ IM PRN (17:47)
[2022-04-22] MEDS: MELATONIN 5 MG TABLETS PO PRN ×2 (01:55→20:52)
[2022-04-22] MEDS: LACTATED RINGERS SOLUTION 1,000 ML IV SCH ×3 (01:57→20:15)
[2022-04-22] MEDS: KETOROLAC TROMETHAMINE 15 MG/ML VIAL IVPUSH PRN ×2 (05:07→12:24)
[2022-04-22] MEDS: ENOXAPARIN NA (PORCINE) 40 MG/0.4 ML DISP.SYRIN SQ SCH (10:19)
[2022-04-22] MEDS: SUCRALFATE 1 GM TABLET (FP) PO SCH ×2 (10:19→21:06)
[2022-04-22] MEDS: PANTOPRAZOLE SODIUM 40 MG VIAL IVPUSH SCH (10:19)
[2022-04-22] MEDS ORDERED: PATIENT'S OWN MEDICATION (NON-FORMULARY) (Bupropion Hcl [Bupropion Xl] 300 MG Tab.Er.24h) PO SCH (13:15)
[2022-04-22] MEDS: ACETAMINOPHEN 1000 MG/100 ML BAG IVPB PRN (20:50)
[2022-04-23] MEDS: LACTATED RINGERS SOLUTION 1,000 ML IV SCH ×3 (05:53→18:23)
[2022-04-23] MEDS: ACETAMINOPHEN 1000 MG/100 ML BAG IVPB PRN (06:15)
[2022-04-23] MEDS: SUCRALFATE 1 GM TABLET (FP) PO SCH (09:25)
[2022-04-23] MEDS: PANTOPRAZOLE SODIUM 40 MG VIAL IVPUSH SCH (09:26)
[2022-04-23 10:33] LABS: EOS % 4.2 % (0-4.5); HEMOGLOBIN 13.8 GM/dL (10.7-15.3); LYMPH % 23.3 % (8-40); MCH 26.4 pg (25.7-33.7); MCHC 32.8 g/dl (32.0-36.0); MEAN CELL VOLUME 80.6 fl (80-96); MEAN PLT VOLUME 8.8 fl (7.5-11.1); MONO % 7.8 % (3.8-10.2); NEUT % 63.7 % (42.8-82.8); PLATELET COUNT 237 10^3/uL (134-434); RBC 5.21 M/mm3 (3.60-5.2); RDW 14.2 % (11.6-15.6); WHITE BLOOD COUNT 5.3 K/mm3 (4.0-10.0)
[2022-04-23 10:39] LABS: INR 1.21 (0.83-1.09)
[2022-04-23 10:42] LABS: ACTIVATED PTT 32.6 SECONDS (25.2-36.5)
[2022-04-23 11:06] LABS: CALCIUM 8.9 mg/dL (8.5-10.1)
[2022-04-23 11:07] LABS: ALBUMIN 3.4 g/dl (3.4-5.0); BLOOD UREA NITROGEN 7.5 mg/dL (7-18); MAGNESIUM 2.1 mg/dL (1.8-2.4)
[2022-04-23 11:10] LABS: CREATININE 0.6 mg/dL (0.55-1.3); PHOSPHOROUS 3.2 mg/dL (2.5-4.9)
[2022-04-23 11:13] LABS: BILIRUBIN,TOTAL 0.7 mg/dL (0.2-1); TOT PROT 6.7 g/dl (6.4-8.2)
[2022-04-23] MEDS: ENOXAPARIN NA (PORCINE) 40 MG/0.4 ML DISP.SYRIN SQ SCH ×2 (11:40→13:41)
[2022-04-23] MEDS ORDERED: POTASSIUM CHLORIDE ORAL LIQUID 20 MEQ/15 ML PO ONE (13:21)
[2022-04-23] MEDS ORDERED: DEXTROSE 50%-WATER - 25 GM/50 ML VIAL IVPUSH PRN (13:22)
[2022-04-23 15:56] VITALS: RESP 18
[2022-04-24] MEDS: PANTOPRAZOLE SODIUM 40 MG VIAL IVPUSH SCH (10:56)
[2022-04-24] MEDS: ENOXAPARIN NA (PORCINE) 40 MG/0.4 ML DISP.SYRIN SQ SCH (10:56)
[2022-04-24 12:25] LABS: BASO % 1.2 % (0-2.0); EOS % 3.7 % (0-4.5); HEMATOCRIT 41.7 % (32.4-45.2); HEMOGLOBIN 13.7 GM/dL (10.7-15.3); LYMPH % 20.3 % (8-40); MCH 26.7 pg (25.7-33.7); MCHC 32.8 g/dl (32.0-36.0); MEAN CELL VOLUME 81.4 fl (80-96); MEAN PLT VOLUME 9.1 fl (7.5-11.1); MONO % 6.3 % (3.8-10.2); NEUT % 68.5 % (42.8-82.8); PLATELET COUNT 256 10^3/uL (134-434); RBC 5.12 M/mm3 (3.60-5.2); RDW 14.3 % (11.6-15.6); WHITE BLOOD COUNT 5.1 K/mm3 (4.0-10.0)
[2022-04-24 13:38] LABS: ALBUMIN 3.5 g/dl (3.4-5.0); BLOOD UREA NITROGEN 9.3 mg/dL (7-18); CALCIUM 9.2 mg/dL (8.5-10.1); CREATININE 0.7 mg/dL (0.55-1.3)
[2022-04-24 13:40] LABS: BILIRUBIN,TOTAL 0.5 mg/dL (0.2-1)
[2022-04-24 13:41] LABS: PHOSPHOROUS 3.2 mg/dL (2.5-4.9)
[2022-04-24 13:43] LABS: TOT PROT 6.8 g/dl (6.4-8.2)
[2022-04-24 15:15] VITALS: BP 106/70; PULSE 72; TEMP 98.7
[2022-04-24] MEDS ORDERED: ALPRAZolam 0.25 MG TABLET PO PRN (15:34)
== END 2022-04-24 19:45 | disposition home or self-care (01) | DRG 392 ==
LOC: JER 03:45 → JERBED 12:20 → J5S 21:40 → OBSVTOIN 04-20 13:47
PROVIDERS: ADMIT Internal Medicine; ATTEND Internal Medicine
PROC: 0DB68ZX Excision of Stomach, Via Natural or Artificial Opening Endoscopic, Diagnostic (ICD-10-PCS; 2022-04-23)
PROC: 0DB98ZX Excision of Duodenum, Via Natural or Artificial Opening Endoscopic, Diagnostic (ICD-10-PCS; principal; 2022-04-23 12:15)
DX: A08.39 Other viral enteritis (principal); E87.2 Acidosis; R11.2 Nausea with vomiting, unspecified; R73.03 Prediabetes; D72.829 Elevated white blood cell count, unspecified; K76.0 Fatty (change of) liver, not elsewhere classified; E87.6 Hypokalemia; N28.1 Cyst of kidney, acquired
CPT/HCPCS: 0241U-QW; 36415; 74177-TC; 74182-TC; 76705-TC; 80048; 80053; 81003; 82550; 83605; 83690; 83735; 84100; 84478; 84484; 84703; 85025; 85027; 85610; 85730; 88305-TC; 93005; 93010; 99285-25; A9579; G0378

== ENCOUNTER 2022-07-10 05:00 | Day surgery (SDC) | payer BC, OTHER ==
[2022-07-06 15:52] VITALS: BMI 25.0
[2022-07-10 12:39] VITALS: BP 103/59; PULSE 67; RESP 17; TEMP 98
== END 2022-07-10 12:47 | disposition home or self-care (01) ==
LOC: JASU-ENDO 05:00
PROVIDERS: ATTEND Internal Medicine Gastroenterology
PROC: 0DJD8ZZ Inspection of Lower Intestinal Tract, Via Natural or Artificial Opening Endoscopic (ICD-10-PCS; principal; 2022-07-10 11:30)
DX: Z12.11 Encounter for screening for malignant neoplasm of colon (principal); K64.8 Other hemorrhoids; K57.30 Diverticulosis of large intestine without perforation or abscess without bleeding; K63.89 Other specified diseases of intestine